=== PATIENT | male | born 1970 | race Asian ===

== ENCOUNTER → 2016-11-07 | Outpatient (CLI) | payer OTHER ==
--- OUTSIDE RECORDS SUMMARY | 2016-11-07 09:59 | XMS REPORT | Continuity of Care Document ---
Author Author [facility] Organization [facility] Address Unknown Phone Unavailable Allergies Medications Problems Date Dx Coded Attending Type Code Diagnosis Diagnosed By 07/27/2014 TONY KING APRN Ot V70.0 09/13/2015 TONY KING APRN Ot Z00.00 Procedures Results Encounters ACCT No. Visit Date/Time Discharge Status Pt. Type Provider Facility Loc./Unit Complaint [id number] 06/30/2014 10:09:00 2013 23:59:59 CLS Outpatient TONY KING APRN [facility] [id number] 08/30/2015 10:01:00 ACT Outpatient TONY KING APRN [facility]
[2016-11-07 10:15] LABS: MEAN PLATELET VOLUME 10.6 FL (7.4-10.4); RED BLOOD COUNT 4.87 10^6/uL (4.35-5.85); RED CELL DISTRIBUTION WIDTH 12.7 % (10.0-14.5); WHITE BLOOD COUNT 4.9 10^3/uL (4.3-11.0)
[2016-11-07 10:33] LABS: ALANINE AMINOTRANSFERASE 58 U/L (0-55); ALBUMIN 4.5 G/DL (3.2-4.5); ANION GAP 10 MMOL/L (5-14); ASPARTATE AMINO TRANSFERASE 29 U/L (5-34); BILIRUBIN,TOTAL 1.2 MG/DL (0.1-1.0); BLOOD UREA NITROGEN 13 MG/DL (7-18); BUN/CREATININE RATIO 14; CALCIUM 9.2 MG/DL (8.5-10.1); CARBON DIOXIDE 23 MMOL/L (21-32); CHLORIDE 108 MMOL/L (98-107); CHOLESTEROL 193 MG/DL (< 200); CREATININE SERUM 0.92 MG/DL (0.60-1.30); DIRECT LDL 98 MG/DL (1-129); GFR ESTIMATED > 60; GLUCOSE 100 MG/DL (70-105); SODIUM 141 MMOL/L (135-145); TOTAL PROTEIN 7.1 G/DL (6.4-8.2); TRIGLYCERIDES 82 MG/DL (<150); VLDL CHOLESTEROL 16 MG/DL (5-40)
[2016-11-07 10:52] LABS: THYROID STIMULATING HORMONE 0.85 UIU/ML (0.35-4.94)
== END ==
LOC: LAB 09:56
PROVIDERS: ATTEND Nurse Practitioner Family
DX: Z00.00 Encounter for general adult medical examination without abnormal findings (principal)
CPT/HCPCS: 36415; 80053; 80061; 84443; 85027

== ENCOUNTER → 2017-10-29 | Outpatient (CLI) | payer OTHER ==
[2017-10-29 10:10] LABS: HEMOGLOBIN 14.5 G/DL (13.3-17.7); MEAN PLATELET VOLUME 11.8 FL (7.4-10.4); RED BLOOD COUNT 4.67 10^6/uL (4.35-5.85); RED CELL DISTRIBUTION WIDTH 12.3 % (10.0-14.5); WHITE BLOOD COUNT 4.9 10^3/uL (4.3-11.0)
[2017-10-29 10:23] LABS: ALANINE AMINOTRANSFERASE 30 U/L (0-55); ALBUMIN 4.3 GM/DL (3.2-4.5); ALKALINE PHOSPHATASE 64 U/L (40-136); BILIRUBIN,TOTAL 0.8 MG/DL (0.1-1.0); BUN/CREATININE RATIO 11; CALCIUM 9.4 MG/DL (8.5-10.1); CARBON DIOXIDE 28 MMOL/L (21-32); CHLORIDE 104 MMOL/L (98-107); CHOLESTEROL 183 MG/DL (< 200); CREATININE SERUM 0.98 MG/DL (0.60-1.30); GFR ESTIMATED > 60; GLUCOSE 105 MG/DL (70-105); HDL CHOLESTEROL 63 MG/DL (40-60); POTASSIUM 4.1 MMOL/L (3.6-5.0); SODIUM 139 MMOL/L (135-145); TOTAL PROTEIN 7.1 GM/DL (6.4-8.2); TRIGLYCERIDES 134 MG/DL (<150); VLDL CHOLESTEROL 27 MG/DL (5-40)
== END ==
LOC: LAB 09:52
PROVIDERS: ATTEND Nurse Practitioner Family
DX: Z00.00 Encounter for general adult medical examination without abnormal findings (principal)
CPT/HCPCS: 36415; 80053; 80061; 84443; 85027

== ENCOUNTER → 2019-01-23 | Outpatient (CLI) | payer OTHER ==
[2019-01-23 09:10] LABS: BASOPHILS % (AUTO) 0 % (0-10); EOSINOPHILS # (AUTO) 0.2 10^3/uL (0.0-0.3); EOSINOPHILS % (AUTO) 4 % (0-10); HEMATOCRIT 43 % (40-54); HEMOGLOBIN 14.5 G/DL (13.3-17.7); LYMPHOCYTES # (AUTO) 1.6 X 10^3 (1.0-4.0); LYMPHOCYTES % (AUTO) 30 % (12-44); MEAN CORPUSCULAR HEMOGLOBIN 30 PG (25-34); MEAN CORPUSCULAR HGB CONC 34 G/DL (32-36); MEAN CORPUSCULAR VOLUME 90 FL (80-99); MEAN PLATELET VOLUME 10.8 FL (7.4-10.4); MONOCYTES # (AUTO) 0.4 X 10^3 (0.0-1.0); MONOCYTES % (AUTO) 7 % (0-12); NEUTROPHILS % (AUTO) 58 % (42-75); PLATELET COUNT 160 10^3/uL (130-400); RED CELL DISTRIBUTION WIDTH 12.4 % (10.0-14.5); WHITE BLOOD COUNT 5.2 10^3/uL (4.3-11.0)
[2019-01-23 09:27] LABS: ALANINE AMINOTRANSFERASE 31 U/L (0-55); ALBUMIN 4.4 GM/DL (3.2-4.5); ALKALINE PHOSPHATASE 55 U/L (40-136); BILIRUBIN,TOTAL 0.8 MG/DL (0.1-1.0); BUN/CREATININE RATIO 13; CALCIUM 9.3 MG/DL (8.5-10.1); CARBON DIOXIDE 24 MMOL/L (21-32); CHLORIDE 105 MMOL/L (98-107); CHOLESTEROL 173 MG/DL (< 200); CREATININE SERUM 0.99 MG/DL (0.60-1.30); GFR ESTIMATED > 60; GLUCOSE 107 MG/DL (70-105); HDL CHOLESTEROL 59 MG/DL (40-60); POTASSIUM 3.7 MMOL/L (3.6-5.0); SODIUM 139 MMOL/L (135-145); TOTAL PROTEIN 7.1 GM/DL (6.4-8.2); TRIGLYCERIDES 118 MG/DL (<150); VLDL CHOLESTEROL 24 MG/DL (5-40)
== END ==
LOC: LAB 08:56
PROVIDERS: ATTEND Nurse Practitioner Family
DX: Z00.00 Encounter for general adult medical examination without abnormal findings (principal); I10 Essential (primary) hypertension; Z12.5 Encounter for screening for malignant neoplasm of prostate; Z13.220 Encounter for screening for lipoid disorders
CPT/HCPCS: 36415; 80053; 80061; 84153; 84443; 85025

== ENCOUNTER → 2020-05-06 | Outpatient (CLI) | payer OTHER ==
[2020-05-06 10:03] LABS: HEMOGLOBIN 14.8 G/DL (13.3-17.7); MEAN PLATELET VOLUME 10.9 FL (7.4-10.4); RED CELL DISTRIBUTION WIDTH 12.6 % (10.0-14.5); WHITE BLOOD COUNT 5.6 10^3/uL (4.3-11.0)
[2020-05-06 10:08] LABS: CHLORIDE 104 MMOL/L (98-107)
[2020-05-06 10:09] LABS: ALBUMIN 4.3 GM/DL (3.2-4.5); POTASSIUM 3.8 MMOL/L (3.6-5.0); SODIUM 139 MMOL/L (135-145)
[2020-05-06 10:10] LABS: CALCIUM 9.1 MG/DL (8.5-10.1)
[2020-05-06 10:11] LABS: GLUCOSE 104 MG/DL (70-105); TOTAL PROTEIN 7.2 GM/DL (6.4-8.2); TRIGLYCERIDES 122 MG/DL (<150); VLDL CHOLESTEROL 24 MG/DL (5-40)
[2020-05-06 10:12] LABS: CARBON DIOXIDE 25 MMOL/L (21-32)
[2020-05-06 10:13] LABS: BILIRUBIN,TOTAL 0.6 MG/DL (0.1-1.0)
[2020-05-06 10:15] LABS: ALKALINE PHOSPHATASE 56 U/L (40-136); CREATININE SERUM 1.06 MG/DL (0.60-1.30); GFR ESTIMATED > 60
[2020-05-06 10:16] LABS: BUN/CREATININE RATIO 15; CHOLESTEROL 193 MG/DL (< 200)
[2020-05-06 10:17] LABS: HDL CHOLESTEROL 68 MG/DL (40-60)
[2020-05-06 10:18] LABS: ALANINE AMINOTRANSFERASE 22 U/L (0-55)
== END ==
LOC: LAB 09:42
DX: Z00.00 Encounter for general adult medical examination without abnormal findings (principal); Z12.5 Encounter for screening for malignant neoplasm of prostate; Z13.220 Encounter for screening for lipoid disorders
CPT/HCPCS: 36415; 80053; 80061; 84153; 84443; 85027

== ENCOUNTER → 2020-12-28 | Outpatient (CLI) | payer OTHER ==
[2020-12-28 11:31] LABS: HEMOGLOBIN 15.1 g/dL (13.3-17.7); MEAN PLATELET VOLUME 11.4 fL (9.0-12.2); WHITE BLOOD COUNT 7.7 10^3/uL (4.3-11.0)
[2020-12-28 11:43] LABS: ALBUMIN 4.3 GM/DL (3.2-4.5); CHLORIDE 105 MMOL/L (98-107); POTASSIUM 3.9 MMOL/L (3.6-5.0); SODIUM 141 MMOL/L (135-145)
[2020-12-28 11:44] LABS: AMYLASE 81 U/L (25-125); CALCIUM 8.9 MG/DL (8.5-10.1)
[2020-12-28 11:45] LABS: GLUCOSE 105 MG/DL (70-105); TOTAL PROTEIN 7.1 GM/DL (6.4-8.2); TRIGLYCERIDES 78 MG/DL (<150); VLDL CHOLESTEROL 16 MG/DL (5-40)
[2020-12-28 11:46] LABS: CARBON DIOXIDE 27 MMOL/L (21-32)
[2020-12-28 11:47] LABS: BILIRUBIN,TOTAL 0.7 MG/DL (0.1-1.0)
[2020-12-28 11:49] LABS: ALKALINE PHOSPHATASE 74 U/L (40-136); CREATININE SERUM 0.98 MG/DL (0.60-1.30); GFR ESTIMATED > 60
[2020-12-28 11:50] LABS: BUN/CREATININE RATIO 13; CHOLESTEROL 158 MG/DL (< 200)
[2020-12-28 11:51] LABS: HDL CHOLESTEROL 52 MG/DL (40-60)
[2020-12-28 11:52] LABS: ALANINE AMINOTRANSFERASE 37 U/L (0-55)
[2020-12-28 11:53] LABS: LIPASE 10 U/L (8-78)
== END ==
LOC: LAB 10:56
DX: Z00.00 Encounter for general adult medical examination without abnormal findings (principal); Z12.5 Encounter for screening for malignant neoplasm of prostate; Z13.220 Encounter for screening for lipoid disorders
CPT/HCPCS: 36415; 80053; 80061; 82150; 83690; 84153; 84443; 85027

== ENCOUNTER → 2022-10-18 | Outpatient (CLI) | payer OTHER ==
[2022-10-18 09:59] LABS: BASOPHILS % (AUTO) 1 % (0-10); MEAN PLATELET VOLUME 11.4 fL (9.0-12.2)
[2022-10-18 10:01] LABS: EOSINOPHILS # (AUTO) 0.2 10^3/uL (0.0-0.3); EOSINOPHILS % (AUTO) 4 % (0-10); HEMATOCRIT 44 % (40-54); HEMOGLOBIN 14.5 g/dL (13.3-17.7); LYMPHOCYTES # (AUTO) 1.5 10^3/uL (1.0-4.0); LYMPHOCYTES % (AUTO) 39 % (12-44); MEAN CORPUSCULAR HEMOGLOBIN 31 pg (25-34); MEAN CORPUSCULAR HGB CONC 33 g/dL (32-36); MEAN CORPUSCULAR VOLUME 93 fL (80-99); MONOCYTES # (AUTO) 0.3 10^3/uL (0.0-1.0); MONOCYTES % (AUTO) 8 % (0-12); NEUTROPHILS # (AUTO) 1.8 10^3/uL (1.8-7.8); NEUTROPHILS % (AUTO) 48 % (42-75); PLATELET COUNT 146 10^3/uL (130-400); WHITE BLOOD COUNT 3.7 10^3/uL (4.3-11.0)
[2022-10-18 10:18] LABS: ALBUMIN 4.3 GM/DL (3.2-4.5); POTASSIUM 4.1 MMOL/L (3.6-5.0)
[2022-10-18 10:20] LABS: CALCIUM 9.3 MG/DL (8.5-10.1)
[2022-10-18 10:23] LABS: BILIRUBIN,TOTAL 1.3 MG/DL (0.1-1.0)
[2022-10-18 10:24] LABS: CREATININE SERUM 1.01 MG/DL (0.60-1.30)
== END ==
LOC: LAB 09:29
PROVIDERS: ATTEND Family Medicine
DX: Z00.00 Encounter for general adult medical examination without abnormal findings (principal); Z13.1 Encounter for screening for diabetes mellitus
CPT/HCPCS: 36415; 80053; 80061; 83036; 85025

== ENCOUNTER 2022-11-15 05:32 | Outpatient (CLI) | payer OTHER ==
[~2022-11-15] VITALS: Ht 167.6 cm; Wt 68.0 kg
[2022-11-15] MEDS ORDERED: LISI30TA5 PO (09:01)
== END 2022-11-15 09:08 | disposition home or self-care (01) ==
LOC: PREOP 05:32
PROVIDERS: ATTEND Surgery
DX: Z01.818 Encounter for other preprocedural examination (principal)

== ENCOUNTER 2022-11-22 10:38 | Day surgery (SDC) | payer OTHER ==
[~2022-11-22] VITALS: Ht 167 cm; Wt 68.0 kg
[~2022-11-22 10:38] MED LIST: LISI30TA5 PO
[2022-11-22] MEDS ORDERED: LACTATED RINGERS 1,000 ML IV STA (10:43)
[2022-11-22] MEDS ORDERED: LIDOCAINE JELLY 2% 6 ML SYRINGE MM PRN (10:45)
[2022-11-22] MEDS ORDERED: PROPOFOL INJECTION 50 ML IV ONE (10:52)
[2022-11-22 10:57] VITALS: BP 135/83
--- NOTE | 2022-11-22 10:57 | Progress Note-Pre Operative ---
Pre-Operative Progress Note Date of Available H&P: Nov 22, 2022 Date H&P Reviewed: Nov 22, 2022 Time H&P Reviewed: 10:45 History & Physical: No changes noted Pre-Operative Diagnosis: screening o NESTOR KERN MD Nov 22, 2022 10:57
--- NOTE | 2022-11-22 10:58 | Discharge Inst-Surgical ---
D/C Lap Instructions-ERLIN Follow Up Activity as tolerated High Fiber Diet 25g or more per day Avoid Alcohol, Caffeine, Spicy [place] and Acid foods. Drink 64 fluid oz or more of fluids per day. Symptoms to Report: Fever over 101 degree F, Nausea/Vomiting If any problems/questions: Contact your physician or go to Emergency Room NESTOR KERN MD Nov 22, 2022 10:58
[2022-11-22] MEDS ORDERED: ONDANSETRON 4 MG (ZOFRAN) ORAL DISSOLVE TAB PO PRN (11:00)
[2022-11-22] MEDS ORDERED: ONDANSETRON 4 MG/2 ML (SDV) Z0FRAN IVP PRN (11:00)
[2022-11-22] MEDS ORDERED: LIDOCAINE JELLY 2% 6 ML SYRINGE ONE (11:12)
[2022-11-22 11:32] VITALS: BP 93/58
--- NOTE | 2022-11-22 11:34 | Progress Note-Post Operative ---
Post-Operative Progess Note Surgeon (s)/Therapy Assistant (s) Surgeon NESTOR KERN MD Therapy Assistant: none Pre-Operative Diagnosis screening colo Post-Operative Diagnosis normal colon and rectum Procedure & Operative Findings Date of Procedure 11/22/22 Procedure Performed/Findings colonoscopy Anesthesia Type mac Estimated Blood Loss Estimated blood loss (mL): minimal Specimens/Packing Specimens Removed none NESTOR KERN MD Nov 22, 2022 11:34
[2022-11-22 11:37] VITALS: BP 97/52
[2022-11-22 11:42] VITALS: BP 100/62
[2022-11-22 11:45] VITALS: BP 100/62
[2022-11-22 12:15] VITALS: BP 107/63
--- NOTE | 2022-11-22 14:56 | Anesthesia-General Post-Op ---
MAC Patient Condition Mental Status/LOC: Same as Preop Cardiovascular: Satisfactory Nausea/Vomiting: Absent Respiratory: Satisfactory Pain: Controlled Complications: Absent Post Op Complications Complications None Follow Up Care/Instructions Patient Instructions None needed. Anesthesiology Discharge Order Discharge Order Patient is doing well, no complaints, stable vital signs, no apparent adverse anesthesia problems. No complications reported per nursing. DANNIE HAMEED CRNA Nov 22, 2022 14:56
--- NOTE | 2022-11-22 15:55 | OPERATIVE REPORT ---
DATE OF SERVICE: 11/22/2022 ATTENDING PRIMARY CARE PHYSICIAN: Dr. Charli Solis. PREOPERATIVE DIAGNOSIS: Screening colonoscopy. POSTOPERATIVE DIAGNOSIS: Normal colon and rectum. PROCEDURE: Colonoscopy. SURGEON: Nestor Kern MD ANESTHESIA: Monitored anesthesia care. ESTIMATED BLOOD LOSS: Minimal. FINDINGS: Normal colon and rectum. DISPOSITION: The patient tolerated the procedure well. INDICATIONS: The patient is a 52-year-old male referred over to us for screening colonoscopy. He has not had a colonoscopy up to this point in his life. He states that he is otherwise doing well, does not report any major issues with diarrhea, nor constipation as well as no red blood per rectum, nor any dark tarry stools. He also does not report any family history of colon cancer. DESCRIPTION OF PROCEDURE: The patient was brought to the endoscopy suite and laid in the left lateral decubitus position. After adequate IV pain and sedative medications and monitored anesthesia care, digital rectal examination was performed. No significant hemorrhoids identified. Normal sphincter tone was felt and no palpable masses. Prostate gland was palpable and appeared normal. The endoscope was then intubated into the anus, rectum gently insufflated. The endoscope was then advanced through the valves of [place] of the rectum with no polyps or any neoplasms identified. Through the sigmoid colon, no diverticulosis identified. The endoscope was then advanced to the remainder of the descending, transverse and ascending colon to the cecum, which were normal. No polyps or any neoplasms identified. The endoscope was then slowly withdrawn while taking a second look and suctioning of residual air with no additional findings. The patient tolerated the procedure well. We will recommend continued medical management with a high-fiber diet with at least 30 g of fiber daily and significant amounts of water to promote soft stools on a daily basis. He does not need another colonoscopy for another 10 years. Job ID: [id number] DocumentID: [id number] Dictated Date: 11/22/2022 11:31:20 [employer] Date: 11/22/2022 15:52:00 Dictated By: NESTOR KERN MD
== END 2022-11-22 12:20 | disposition home or self-care (01) ==
LOC: ENDO 10:38
PROVIDERS: ATTEND Surgery
DX: Z12.11 Encounter for screening for malignant neoplasm of colon (principal); Z87.891 Personal history of nicotine dependence